=== PATIENT | female | born 1990 | race Caucasian/White ===

== ENCOUNTER 2020-12-04 20:15 | Emergency (ER) | payer OTHER ==
[~2020-12-04] VITALS: Ht 162.6 cm; Wt 65.3 kg
== END 2020-12-04 22:56 | disposition home or self-care (01) ==
LOC: ER 20:15
DX: L29.8 Other pruritus (principal); L53.8 Other specified erythematous conditions; T63.444A Toxic effect of venom of bees, undetermined, initial encounter; Y92.89 Other specified places as the place of occurrence of the external cause; Z03.818 Encounter for observation for suspected exposure to other biological agents ruled out